=== PATIENT | female | born 1995 | race Caucasian/White ===

== ENCOUNTER 2021-03-28 16:52 | Emergency (ER) | payer BC, OTHER ==
[2021-03-28 17:34] LABS: Urine Blood 2+ (Negative); Urine Glucose Negative (Negative); Urine Protein 3+ (Negative); Urine pH 5.5 (5.0-7.0)
[2021-03-28 17:45] LABS: Urine RBC <5 /HPF (NONE SEEN)
[2021-03-28 17:46] LABS: Urine Bacteria <20 /HPF (<20)
[2021-03-28 17:52] LABS: Absolute Lymphocytes (CBC) 2.2 K/uL (0.7-4.9); Basophils % 0.6 % (0-1.3); Hematocrit 38.5 % (36.0-45.0); Lymphocytes % 20.5 % (15.3-44.8); MPV 9.2 fL (7.6-11.3)
[2021-03-28] MEDS ORDERED: NA CHLORIDE 0.9% 1,000 ML ONE (17:55)
[2021-03-28] MEDS ORDERED: KETOROLAC 30 MG/ML INJ ONE (17:55)
[2021-03-28] MEDS ORDERED: ONDANSETRON 4 MG/2 ML VIAL ONE (17:55)
[2021-03-28 18:08] LABS: Albumin 3.8 g/dL (3.4-5.0); Bilirubin Direct 0.2 mg/dL (0-0.2); Bilirubin Total 0.6 mg/dL (0.2-1.0); Potassium 3.6 mmol/L (3.5-5.1); Protein, Total 8.5 g/dL (6.4-8.2)
--- NOTE | 2021-03-28 18:20 | RAD REPORT ---
EXAM DESCRIPTION: CT - Stone Protocol - 03/28/2021 5:55 pm CLINICAL HISTORY: Abdominal pain. Left flank pain COMPARISON: None. TECHNIQUE: Computed axial tomography of the abdomen pelvis was obtained without oral or IV contrast. Lack of IV and oral contrast limits evaluation of solid organs, bowel, and vessels. Coronal reformat micaela images were obtained and reviewed. All CT scans are performed using dose optimization technique as appropriate and may include automated exposure control or mA/KV adjustment according to patient size. FINDINGS: A renal calculus is not seen. An ureteral calculus is not noted. A bladder calculus is not present. The liver, spleen, pancreas and adrenals appear grossly normal There is no evidence of diverticulitis. The appendix appears normal A tampon is present within the vagina IMPRESSION: Negative for a genitourinary calculus
--- NOTE | 2021-03-28 18:41 | ER ---
Nurse's Notes [facility] Name: Maureen Anderson Age: 25 yrs Sex: Female : 1995 Arrival Date: 03/28/2021 Time: 16:57 Bed 20 Private MD: Diagnosis: Low back pain Presentation: 03/28 17:01 Chief complaint: Patient states: Pt states she started having diarrhea and back on the ae4 previous Monday. Pt also states she has been taking ibuprofen and tylenol frequently as well as amoxicillin for a "tooth infection". Coronavirus screen: Client denies travel out of the [place] in the last 14 days. At this time, the client does not indicate any symptoms associated with coronavirus-19. Ebola Screen: Patient denies travel to an Ebola-affected area in the 21 days before illness onset. No symptoms or risks identified at this time. Initial Sepsis Screen: Does the patient meet any 2 criteria? No. Patient's initial sepsis screen is negative. Risk Assessment: Do you want to hurt yourself or someone else? Patient reports no desire to harm self or others. 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 - Social history:: Smoking status: Patient denies any tobacco usage or history of. Screenin:50 Abuse screen: Denies threats or abuse. Nutritional screening: No deficits noted. vg1 Tuberculosis screening: No symptoms or risk factors identified. Fall Risk No fall in past 12 months (0 pts). No secondary diagnosis (0 pts). IV access (20 points). Ambulatory Aid- None/Bed Rest/Nurse Assist (0 pts). Gait- Normal/Bed Rest/Wheelchair (0 pts) Mental Status- Oriented to own ability (0 pts). Total Harrington Fall Scale indicates No Risk (0-24 pts). Assessment: 17:22 General: Appears in no apparent distress. comfortable. General: Behavior is calm, vg1 cooperative. Pain: Complains of pain in left lower quadrant and left low back Pain currently is 3 out of 10 on a pain scale. Quality of pain is described as crampy. Neuro: Level of Consciousness is awake, alert, obeys commands, Oriented to person, place, time, situation. Cardiovascular: Patient's skin is warm and dry. Respiratory: Airway is patent Respiratory effort is even, unlabored. GI: Reports nausea. : Denies burning with urination. EENT: No signs and/or symptoms were reported regarding the EENT system. Derm: Skin is intact, is healthy with good turgor. Musculoskeletal: Circulation, motion, and sensation intact. 18:31 Reassessment: Patient appears in no apparent distress at this time. Patient and/or vg1 family updated on plan of care and expected duration. Pain level reassessed. Patient is alert, oriented x 3, equal unlabored respirations, skin warm/dry/pink. Patient states feeling better. Vital Signs: 17:01 BP 153 / 95; Pulse 91; Resp 19; Temp 97.6; Pulse Ox 99% on R/A; Weight 140.61 kg (R); ae4 Height 5 ft. 3 in. (160.02 cm); Pain 5/10; 17:25 BP 142 / 79; Pulse 92; Resp 16; Pulse Ox 98% on R/A; vg1 18:31 BP 119 / 89; Pulse 70; Resp 16; Pulse Ox 98% on R/A; vg1 17:01 Body Mass Index 54.91 (140.61 kg, 160.02 cm) ae4 ED Course: 16:57 Patient arrived in ED. mr 17:02 Brain Chavez PA is PHCP. cp 17:02 Meño Chiang MD is Attending Physician. cp 17:06 Triage completed. ae4 17:07 Arm band placed on right wrist. ae4 17:09 Bibiana Fields, RUFINO is Primary Nurse. vg1 17:40 Initial lab(s) drawn, by me, sent to lab. Inserted saline lock: 20 gauge in right dh3 antecubital area, using aseptic technique. Blood collected. 17:51 Patient has correct armband on for positive identification. Call light in reach. Side vg1 rails up X 1. 17:55 CT Stone Protocol In Process Unspecified. EDMS 19:02 No provider procedures requiring assistance completed. IV discontinued, intact, vg1 bleeding controlled, No redness/swelling at site. Pressure dressing applied. Administered Medications: 17:46 Drug: NS 0.9% 1000 ml Route: IV; Rate: 1 bolus; Site: right antecubital; vg1 17:46 Drug: Zofran (Ondansetron) 4 mg Route: IVP; Site: right antecubital; vg1 18:30 Follow up: Response: No adverse reaction; Nausea is decreased vg1 17:47 Drug: TORadol - (ketorolac) 15 mg Route: IVP; Site: right antecubital; vg1 18:30 Follow up: Response: No adverse reaction; Pain is decreased vg1 Outcome: 18:40 Discharge ordered by . gwen 19:02 Discharged to home ambulatory. vg1 19:02 Condition: stable 19:02 Discharge instructions given to patient, Instructed on discharge instructions, follow up and referral plans. medication usage, Demonstrated understanding of instructions, follow-up care, medications, Prescriptions given X 4. 19:02 Patient left the ED. vg1 Signatures: Dispatcher [employer] EDAL LebronGay harvey Corey, PA PA cp Herrera, Deanna 3 Da Balderas RN RN ae4 Bibiana Fields RN RN vg1
--- NOTE | 2021-03-28 18:41 | EDPHYS ---
Physician Documentation [facility] Name: Maureen Anderson Age: 25 yrs Sex: Female : 1995 Arrival Date: 03/28/2021 Time: 16:57 Bed 20 Private MD: ED Physician Meño Chiang HPI: 03/28 17:25 This 25 yrs old Female presents to ER via Ambulatory with complaints of Back cp Pain, Diarrhea. 17:25 The patient presents with pain that is acute, with no known mechanism of injury. The cp symptoms are located in the left low back. 17:25 Onset: The symptoms/episode began/occurred 4 day(s) ago. cp 17:25 The pain radiates to the abdomen. Associated signs and symptoms: Pertinent positives: cp vomiting, diarrhea, Pertinent negatives: dysuria, fever. The problem was sustained from unknown cause. 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 - Social history:: Smoking status: Patient denies any tobacco usage or history of. ROS: 17:28 Constitutional: Negative for fever. cp 17:28 Back: Positive for pain at rest, pain with movement, of the left low back. 17:28 : Positive for vaginal bleeding, Negative for urinary symptoms. 17:28 Eyes: Negative for injury, pain, redness, and discharge. cp 17:28 ENT: Negative for ear pain, sore throat, difficulty swallowing, difficulty handling secretions. 17:28 Cardiovascular: Negative for chest pain. 17:28 Respiratory: Negative for cough, shortness of breath, wheezing. 17:28 Abdomen/GI: Positive for abdominal pain, diarrhea, of the posterior aspect of left lateral abdomen, anterior aspect of left lateral abdomen and left lower quadrant, Negative for vomiting, constipation. 17:28 All other systems are negative. Exam: 17:30 Head/Face: Normocephalic, atraumatic. cp 17:30 Constitutional: The patient appears in no acute distress, alert, awake, non-toxic, well developed, well nourished, obese. 17:30 Eyes: Periorbital structures: appear normal, Conjunctiva: normal, no exudate, no injection, Sclera: no appreciated abnormality, Lids and lashes: appear normal, bilaterally. 17:30 ENT: External ear(s): are unremarkable, Nose: is normal, Mouth: Lips: moist, Oral mucosa: moist, Posterior pharynx: Airway: no evidence of obstruction, patent. 17:30 Chest/axilla: Inspection: normal. 17:30 Cardiovascular: Rate: normal, Rhythm: regular. 17:30 Respiratory: the patient does not display signs of respiratory distress, Respirations: normal, no use of accessory muscles, no retractions, labored breathing, is not present. 17:30 Abdomen/GI: Inspection: abdomen appears normal, Bowel sounds: active, all quadrants, Palpation: soft, in all quadrants, mild abdominal tenderness, in the left lower quadrant, rebound tenderness, is not appreciated, voluntary guarding, is not appreciated, involuntary guarding, is not appreciated. 17:30 Back: pain, that is mild, of the left low back, ROM is painful, with all movement, CVA tenderness, is absent. Vital Signs: 17:01 BP 153 / 95; Pulse 91; Resp 19; Temp 97.6; Pulse Ox 99% on R/A; Weight 140.61 kg (R); ae4 Height 5 ft. 3 in. (160.02 cm); Pain 5/10; 17:25 BP 142 / 79; Pulse 92; Resp 16; Pulse Ox 98% on R/A; vg1 18:31 BP 119 / 89; Pulse 70; Resp 16; Pulse Ox 98% on R/A; vg1 17:01 Body Mass Index 54.91 (140.61 kg, 160.02 cm) ae4 MDM: 17:15 Patient medically screened. cp 17:30 Differential diagnosis: Pyelonephritis Ureterolithiasis ovarian cyst, cp diverticulitis. 18:39 Data reviewed: vital signs, nurses notes, lab test result(s), radiologic studies, CT cp scan. Counseling: I had a detailed discussion with the patient and/or guardian regarding: the historical points, exam findings, and any diagnostic results supporting the discharge/admit diagnosis, lab results, radiology results, to return to the emergency department if symptoms worsen or persist or if there are any questions or concerns that arise at home. Response to treatment: the patient's symptoms have markedly improved after treatment, VSS. Pain markedly improved, and as a result, I will discharge patient. 03/28 17:26 Order name: Basic Metabolic Panel 03/28 17:26 Order name: CBC with Diff; Complete Time: 18:15 cp 03/28 18:16 Interpretation: Reviewed. 03/28 17:26 Order name: Hepatic Function 03/28 17:26 Order name: Lipase; Complete Time: 18:15 cp 03/28 17:26 Order name: Urine Microscopic Only; Complete Time: 18:15 cp 03/28 18:16 Interpretation: Reviewed. 03/28 17:27 Order name: Basic Metabolic Panel; Complete Time: 18:15 EDMS 03/28 18:15 Interpretation: Normal except: GFR 52. 03/28 17:26 Order name: IV Saline Lock; Complete Time: 17:40 03/28 17:26 Order name: CT Stone Protocol; Complete Time: 18:28 03/28 18:29 Interpretation: Report reviewed. 03/28 17:27 Order name: Liver (Hepatic) Function; Complete Time: 18:15 EDMS 03/28 18:16 Interpretation: Normal except: AST 12; TP 8.5; GLOB 4.7; A/G 0.8. 03/28 17:34 Order name: Urine Dipstick-Ancillary; Complete Time: 18:15 EDMS 03/28 18:16 Interpretation: Normal except: UKET 2+; UBLD 2+; UPROT 3+. 03/28 17:38 Order name: Urine --Ancillary (enter results); Complete Time: 18:15 em1 03/28 17:26 Order name: Labs collected and sent; Complete Time: 17:40 cp 03/28 17:26 Order name: Urine Dipstick-Ancillary (obtain specimen); Complete Time: 17:37 cp 03/28 17:26 Order name: Urine Test (obtain specimen); Complete Time: 17:37 cp Administered Medications: 17:46 Drug: NS 0.9% 1000 ml Route: IV; Rate: 1 bolus; Site: right antecubital; vg1 17:46 Drug: Zofran (Ondansetron) 4 mg Route: IVP; Site: right antecubital; vg1 18:30 Follow up: Response: No adverse reaction; Nausea is decreased vg1 17:47 Drug: TORadol - (ketorolac) 15 mg Route: IVP; Site: right antecubital; vg1 18:30 Follow up: Response: No adverse reaction; Pain is decreased vg1 Disposition: 19:05 Chart complete. cp Disposition: 03/28/21 18:40 Discharged to Home. Impression: Low back pain. - Condition is Stable. - Discharge Instructions: Food Choices to Help Relieve Diarrhea, Adult, Back Pain, Adult, Diarrhea, Adult, Back Exercises. - Prescriptions for Cyclobenzaprine 10 mg Oral Tablet - take 1 tablet by ORAL route every 8 hours As needed; 20 tablet. Zofran 4 mg Oral Tablet - take 1 tablet by ORAL route every 12 hours As needed; 20 tablet. Lidoderm 5 % Topical adhesive patch,medicated - apply 1 patch by TRANSDERMAL route once daily apply to painful area of low back as directed; 1 box. Naprosyn 500 mg Oral Tablet - take 1 tablet by ORAL route 2 times per day take with food; 20 tablet. - Medication Reconciliation Form, Thank You Letter, Antibiotic Education, Prescription Opioid Use form. - Follow up: Private Physician; When: 1 - 2 days; Reason: Worsening of condition. - Problem is new. - Symptoms have improved. Addendum: 04/01/2021 06:59 Co-signature as Attending Physician, Meño Chiang MD. m a2 Signatures: Dispatcher [employer] EDKY Brain Chavez PA PA cp Meño Chiang MD MD ma2 Da Balderas, RN RN ae4 Bibiana Fields, RN RN vg1 Corrections: (The following items were deleted from the chart) 03/28 19:02 18:40 03/28/2021 18:40 Discharged to Home. Impression: Low back pain. Condition is vg1 Stable. Forms are Medication Reconciliation Form, Thank You Letter, Antibiotic Education, Prescription Opioid Use. Follow up: Private Physician; When: 1 - 2 days; Reason: Worsening of condition. Problem is new. Symptoms have improved. cp
[2021-03-28 19:25] VITALS: TEMP 97.6
[2021-03-28 19:28] VITALS: O2SAT 98
[2021-03-28 19:30] VITALS: BP 119/89
== END 2021-03-28 19:02 | disposition home or self-care (01) ==
LOC: ER 16:52
DX: M54.5 Low back pain (principal); R19.7 Diarrhea, unspecified
CPT/HCPCS: 85025; 80048; 36415; 81025; 80076; 83690; 76377; 74176; J7030; J2405; 81003; 81015; 96374; 96375; 99284